=== PATIENT | female | born 1975 ===

== ENCOUNTER 2024-03-14 16:21 | Emergency (ER) | payer BC, SELFPAY ==
[2024-03-14 16:25] VITALS: BP 165/117; PULSE 72; RESP 20; O2SAT 100
--- NOTE | 2024-03-14 16:44 | ED.GENADUL_ITS ---
Discharge Plan Disposition Patient Disposition: Home Condition: Stable Discharge Details Clinical Impression: Strain of lumbar paraspinous muscle, Abnormal vaginal bleeding Primary Care Provider: Unknown,Unknown ED Provider: Diana Rodriguez Home Meds and New Rx's Prescriptions: New cyclobenzaprine 10 mg tablet 10 mg PO TID PRN (Reason: muscle spasm) Qty: 10 0RF Rx Instructions: Take 1 tablet by mouth up to 3 times daily as needed for muscle spasm. Discharge Instructions Instructions: Low Back Pain ED, Heavy Periods ED Additional Instructions: Please follow-up with your primary care provider regarding vaginal bleeding. You may alternate ice and heat to your lower back. Please take Tylenol or Ibuprofen with food every 4-6 hours as needed for pain and swelling. X-rays of your lower spine do show some straightening which is an indicator of muscle spasm, no bony abnormality or any broken bones or malalignment. No evidence of urinary tract infection. Thank you for allowing us to care for you today. Stand Alone Forms: Work Release Referrals: Primary Care Provider [Outside] - 1 week HPI General Mode of arrival: ambulatory . Date/Time Provider Initiated Documentation: 03/14/24 16:43 . Limitations to Documentation: no limitations . Information obtained by: patient, RN notes reviewed and old records reviewed . HPI Narrative: 40-year-old female presents to the ER with a chief complaint of lower back pain, vaginal bleeding with clots which is abnormal for her. She denies any chance of reports last menstrual period was 3 years ago, she denies any lower abdominal pain denies any nausea vomiting diarrhea or fever. 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 She does report that they had been doing some increased training denies any falls or significant trauma. Upon arrival she is hypertensive with a blood pressure 165/117, she does have bilateral paraspinous back pain. Related Data Home Medications Medication Instructions Recorded Confirmed cyclobenzaprine 10 mg tablet 10 mg PO TID PRN muscle spasm #10 03/14/24 tabs Previous Rx's Medication Instructions Recorded cyclobenzaprine 10 mg tablet 10 mg PO TID PRN muscle spasm #10 03/14/24 tabs General Stated Complaint: Nk/Back Pain ALEX: 3 Review of Systems All systems reviewed & are unremarkable except as noted in HPI and below ENT Ears, Nose, Mouth, and Throat: Denies neck pain Gastrointestinal Gastrointestinal: Reports cramping, Denies diarrhea, Denies nausea and Denies vomiting Genitourinary Genitourinary: Reports abnormal vaginal bleeding Musculoskeletal Musculoskeletal: Reports back pain, Denies neck pain, Denies numbness, Denies radiating pain into limb, Reports stiffness and Denies tingling Neurologic Neurologic: Denies numbness and Denies tingling Course Vital Signs Vital signs: Vital Signs Pulse 72 03/14/24 16:25 Respiratory Rate 20 03/14/24 16:25 Blood Pressure 165/117 H 03/14/24 16:25 Pulse Oximetry 100 03/14/24 16:25 Pulse 72 03/14/24 16:25 Respiratory Rate 20 03/14/24 16:25 Blood Pressure 165/117 H 03/14/24 16:25 Blood Pressure Position Sitting 03/14/24 16:25 Pulse Oximetry 100 03/14/24 16:25 Oxygen Delivery Method Room Air 03/14/24 16:25 Oxygen Flow Rate 0 03/14/24 16:25 Medical Decision Making 40-year-old female presents to the ER with a chief complaint of lower back pain, vaginal bleeding with clots which is abnormal for her. She denies any chance of reports last menstrual period was 3 years ago, she denies any lower abdominal pain denies any nausea vomiting diarrhea or fever. 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 She does report that they had been doing some increased training denies any falls or significant trauma. Upon arrival she is hypertensive with a blood pressure 165/117, she does have bilateral paraspinous back pain. Physical exam somewhat limited by patient girth, she is ambulatory upon arrival with a stiff gait. Urine , urinalysis ordered, Tylenol 1 g, L-spine x-rays. Differential diagnosis includes not limited to musculoskeletal strain, vaginal fibroids, miscarriage, kidney stone, UTI. X-ray shows no acute abnormality of the L-spine, urinalysis shows no evidence of UTI no leukocytes no nitrites, there is blood however patient is having some vaginal bleeding is on her period with clots. Will have her follow-up with her PCP for an outpatient ultrasound if continued bleeding. Patient reports that her vaginal bleeding is decreased today. Denies any dizziness lightheadedness. Will give 3 tablets of Flexeril to go she was given a lidocaine patch here in the department and a gram of Tylenol. Will instruct on alternating ice and heat and follow-up care. This text was generated using [employer] dictation system, please disregard any oddities of phrase or misspellings. Lab Data Lab results reviewed: Yes I reviewed the patient's lab results. Labs: Laboratory Tests Range/Units 03/14/24 16:55 Urine Color (Yellow) Yellow Urine Clarity (Clear) Clear Urine pH (5-8) 5.5 Ur Specific [place] (1.005-1.025) >= 1.030 H Urine Protein (Neg-Trace) mg/dL Negative Urine Ketones (Negative) mg/dL Negative Urine Blood (Negative) Moderate H Urine Nitrite (Negative) Negative Urine Bilirubin (Negative) Negative Urine Urobilinogen (Up to 0.2) mg/dL 0.2 Ur Leukocyte Esterase (Negative) Negative Urine RBC (0-2) HPF 10-20 H Urine WBC (0-5) HPF Negative Ur Epithelial Cells (Negative) HPF Few Urine Crystals (Negative) HPF Negative Urine Bacteria (Negative) HPF Negative Urine Mucus (Negative) Moderate Ur Culture Indicated? No Urine Glucose (Negative) mg/dL Negative Quality:SDOH Health Related Social Needs: No Data to Display PFSH All Active Problems (Updated 03/14/24 @ 18:04 by Diana Rodriguez NP) Abnormal vaginal bleeding (Acute) Strain of lumbar paraspinous muscle (Acute) Social History Smoking/Tobacco Use Status: Never Smoking risk assessment performed?: Yes Alcohol Intake: never Substance use type: does not use Housing: house Do you feel safe at home: Yes Do you feel safe in your relationship?: Yes
[2024-03-14] MEDS: Acetaminophen 500 MG TAB 1000 MG PO (16:50)
[2024-03-14 17:05] LABS: Bilirubin Negative (Negative); Blood Moderate (Negative); Clarity Clear (Clear); Glucose Negative (Negative); Ketones Negative (Negative); Leukocyte Esterase Negative (Negative); Nitrite Negative (Negative); Specific Gravity >= 1.030 (1.005-1.025); Urobilinogen 0.2 mg/dL (Up to 0.2); pH 5.5 (5-8)
[2024-03-14 17:13] LABS: Bacteria Negative HPF (Negative); C & S Indicated? No; Crystals Negative HPF (Negative); Epithelial Cells Few HPF (Negative); Mucus Moderate (Negative); WBC Negative HPF (0-5)
--- NOTE | 2024-03-14 17:35 | DI.RAD_ITS ---
Exam(s) XR LUMBAR SPINE COMPLETE EXAM: XR LUMBAR SPINE COMPLETE CLINICAL HISTORY: Lower back pain. TECHNIQUE: 2D digital imaging was performed. COMPARISON: No exams were available for comparison FINDINGS: Five views. No evidence of fracture or listhesis nor pars interarticularis defects. All the disc spaces exhibit normal height. Facet joints unremarkable. There is no scoliosis. Bone density normal. No osseous lesions. IMPRESSION: No significant radiograph findings in the lumbosacral spinal column. DATA REPOSITORY: RADIATION DOSE DELIVERED:
[2024-03-14] MEDS: Lidocaine 5% Patch 1 PATCH TP (18:02)
[2024-03-14 18:20] VITALS: BP 166/99; PULSE 73; RESP 16; O2SAT 99
[2024-03-14] MEDS: Cyclobenzaprine 10 MG TAB, 3 TABS/BTL PO (18:20)
== END 2024-03-14 18:31 | disposition home or self-care (01) ==
LOC: ER 18:52
PROVIDERS: Emergency Provider Registered Nurse Emergency
DX: S39.012A Strain of muscle, fascia and tendon of lower back, initial encounter (principal); N93.8 Other specified abnormal uterine and vaginal bleeding; X50.9XXA Other and unspecified overexertion or strenuous movements or postures, initial encounter; Y93.B9 Activity, other involving muscle strengthening exercises; Y93.89 Activity, other specified; Y99.0 Civilian activity done for income or pay
CPT/HCPCS: 81025; 99284; 72110; 81003; 81015; 99283